=== PATIENT | male | born 1945 | race Caucasian/White ===

== ENCOUNTER 2017-03-21 23:39 | Observation (INO) | payer MEDICARE ==
[~2017-03-21] VITALS: Ht 172.7 cm; Wt 89.2 kg
--- NOTE | 2017-03-21 22:38 | NUR ---
RECEIVED REPORT FROM RADHA RICK FROM [facility] ED IN [place].
[~2017-03-21 23:39] MED LIST: ACYCLOVIR400 MG PO; AVODART0.5 MG PO; DYMISTA1 SPR; FLOMAX0.4 M1 PO; LEVOTHYROXIN100 MC1 PO; LORTAB 5/3255 MG PO; MELOXICAM15 MG PO; OMEPRAZOLE20 MG PO; PERCOCET 10/31 COMBO PO; POM PO; POM SC; PYRIDIUM200 MG PO; SIMVASTATIN40 MG PO; TAMSULOSIN0.4 MG PO
[2017-03-21 23:40] VITALS: BP 144/91
--- NOTE | 2017-03-22 | NUR ---
RECEIVED PATIENT TO THE FLOOR IN STABLE CONDITON VIA STRETCHER ACCOMPANIED BY [facility] TRANSPORTER. PATIENT WEIGHED AND SETTLED TO BED. PT ALERT AND ORIENTED. DENIES ANY PAIN OR DISCOMFORT AT THIS TIME. ORIENT PATIENT TO ROOM CALL SYSTEM. BED IN LOW POSITIOM AND CALL LIGHT INN REACH.
[2017-03-22 03:32] VITALS: BP 119/79
--- NOTE | 2017-03-22 04:00 | NUR ---
NO APPARENT ACUTE CHANGES NOTED IN PT'S CONDITION.
[2017-03-22 05:40] LABS: HEMATOCRIT 41.4 % (39.0-50.0); IMMATURE GRANULOCYTES 0.4 % (0.0-1.0); MEAN CORPUSCULAR HGB 30.8 pG CALC (26.0-32.0); MEAN CORPUSCULAR HGB CONC 33.8 g/L CALC (32.0-36.0); NEUT# 3.41 thou/uL (1.82-7.42); RED BLOOD COUNT 4.55 mill/uL (4.70-6.10)
[2017-03-22 05:58] LABS: ALBUMIN 4.1 g/dL (3.2-5.0); ALKALINE PHOSPHATASE 70 u/l (38-126); ANION GAP 14 (6-22 (CALC)); BILIRUBIN, TOTAL 0.5 mg/dL (0.0-1.4); BUN 16 mg/dL (8-23); BUN/CREATININE RATIO 18 (12-20 (CALC)); CALCIUM 9.2 mg/dL (8.4-10.2); CARBON DIOXIDE 25 mmol/l (22-30); CHLORIDE 108 mmol/l (95-108); CREATININE 0.9 mg/dL (0.7-1.3); GFR > 60 ML/MIN (>=60 (CALC)); GFR FOR AFR.AMER. > 60 ML/MIN (>=60 (CALC)); GLUCOSE 106 mg/dL (82-115); POTASSIUM 4.3 mmol/l (3.5-5.1); SGOT/AST 23 u/l (19-48); SGPT/ALT 32 u/l (11-66); SODIUM 143 mmol/l (137-146); TOTAL PROTEIN 6.6 g/dL (6.3-8.2)
--- NOTE | 2017-03-22 07:00 | NUR ---
SHIFT CHANFE REPORT FROM DOMENICA, PT AWAKE ALERT AND ORIENTED, DENIES PAIN/DISCOMFORT OF ANY SORT, TELE MONITOR IN PLACE. PT C/O OF PERFUME ODOR ON ME MAKING HIM SICK. I WORE NO PERFUME BUT APOLOGISED TO CROW AND ASKED ANOTHER RN TO CONTINUE CARE.
--- NOTE | 2017-03-22 07:00 | NUR ---
SHIFT CHANGE REPORT FROM DOMENICA, PT AWAKE ALERT AND ORIENTED, DENIES CP AT THIS TIME. DOMENICA REPORTED HAD ELEVATED TROP THIS AM, HE INFORMED MD WHO ADVISED HIM MEDICATION EMS ADMINISTERED ENROUTE TO THIS [facility] ([facility]) MA RESULT IN ELEVATED TROP AND NO FURTHER ORDERS/INTERVENTIONS AT THIS TIME. TELE MONITOR IN PLACE, CALL THAKUR IN REACH.
--- NOTE | 2017-03-22 08:45 | NUR ---
DR. HERNANDEZ IN TO SEE PT; PLAN OF CARE DISCUSSED
[2017-03-22 09:16] LABS: CHOLESTEROL HDL RATIO 4.8 (<4.4 (CALC))
[2017-03-22 09:18] VITALS: BP 116/76
--- NOTE | 2017-03-22 09:27 | NUR ---
VS OBTAINED; PT A/O X3; DENIES PAIN OR DISCOMFORT; ENCOURAGE USE OF CALL LIGHT IF ANY ASSISTANCE IS NEEDED; CALL THAKUR WITHIN REACH; WILL CONTINUE TO MONITOR.
[2017-03-22 09:56] LABS: TSH, 3RD GENERATION 0.36 uIU/mL (0.47 - 4.68)
[2017-03-22] MEDS ORDERED: PROTONIX20 M1 PO (10:30)
[2017-03-22] MEDS ORDERED: RANITIDINE150 M1 PO (10:31)
[2017-03-22] MEDS ORDERED: TIZANIDINE2 MG PO (10:32)
[2017-03-22] MEDS ORDERED: TRAMADOL HCL50 MG PO (10:33)
[2017-03-22] MEDS ORDERED: VIAGRA100 MG PO (10:34)
[2017-03-22] MEDS ORDERED: ADVIL200 MG PO (10:38)
[2017-03-22] MEDS ORDERED: ZOCOR20 M1 PO (10:40)
[2017-03-22] MEDS ORDERED: ZOVIRAX200 MG PO (10:41)
[2017-03-22 11:10] VITALS: BP 113/70
--- NOTE | 2017-03-22 12:11 | NUR ---
PT VISITING WITH SPOUSE; DENIES PAIN OR DISCOMFORT; CALL THAKUR WITHIN REACH; WILL CONTINUE TO MONITOR.
--- NOTE | 2017-03-22 15:44 | NUR ---
PT AMBULATORY IN THE ROOM; DENIES PAIN OR DISCOMFORT; TELE SB 58; CALL THAKUR WITHIN REACH; WILL CONTINUE TO MONITOR.
[2017-03-22 16:05] VITALS: BP 124/80
[2017-03-22] MEDS ORDERED: SIMVASTATIN40 MG PO (17:43)
[2017-03-22] MEDS ORDERED: ACYCLOVIR400 MG PO (17:43)
[2017-03-22] MEDS ORDERED: OMEPRAZOLE20 MG PO (17:43)
--- NOTE | 2017-03-22 17:53 | NUR ---
DR. HERNANDEZ IN TO SEE PT; PLAN OF CARE DISCUSSED
--- NOTE | 2017-03-22 18:06 | NUR ---
Discharge instructions given. Patient verbalizes understanding of same. Discharged in stable condition via Ambulatory to Home with spouse. All belongings sent with pt.
== END 2017-03-22 18:04 | disposition home or self-care (01) ==
LOC: MS2 23:39
PROVIDERS: ADMIT Internal Medicine Geriatric Medicine; ATTEND Internal Medicine Geriatric Medicine
DX: I47.1 Supraventricular tachycardia (principal); I45.10 Unspecified right bundle-branch block; K27.9 Peptic ulcer, site unspecified, unspecified as acute or chronic, without hemorrhage or perforation; I25.10 Atherosclerotic heart disease of native coronary artery without angina pectoris; I10 Essential (primary) hypertension; K21.9 Gastro-esophageal reflux disease without esophagitis; N40.0 Benign prostatic hyperplasia without lower urinary tract symptoms

== ENCOUNTER 2019-03-26 08:47 | Emergency (ER) | payer OTHER, MEDICARE ==
[~2019-03-26] VITALS: Ht 172.7 cm; Wt 88.0 kg
[~2019-03-26 08:47] MED LIST changes: +ADVIL200 MG PO; +PROTONIX20 M1 PO; +RANITIDINE150 M1 PO; +TIZANIDINE2 MG PO; +TRAMADOL HCL50 MG PO; +VIAGRA100 MG PO; +ZOCOR20 M1 PO; +ZOVIRAX200 MG PO
[2019-03-26 09:28] LABS: GFR > 60 ML/MIN (>=60 (CALC)); GFR FOR AFR.AMER. > 60 ML/MIN (>=60 (CALC))
[2019-03-26 09:41] LABS: ALBUMIN 4.4 g/dL (3.2-5.0); ALKALINE PHOSPHATASE 90 u/l (38-126); ANION GAP 15 (6-22 (CALC)); BILIRUBIN, TOTAL 0.5 mg/dL (0.0-1.4); BUN 15 mg/dL (8-23); BUN/CREATININE RATIO 18 (12-20 (CALC)); CARBON DIOXIDE 25 mmol/l (22-30); CHLORIDE 104 mmol/l (95-108); CREATININE 0.8 mg/dL (0.7-1.3); GFR > 60 ML/MIN (>=60 (CALC)); GFR FOR AFR.AMER. > 60 ML/MIN (>=60 (CALC)); POTASSIUM 4.4 mmol/l (3.5-5.1); SGOT/AST 25 u/l (19-48); SODIUM 139 mmol/l (137-146); TOTAL PROTEIN 7.4 g/dL (6.3-8.2)
[2019-03-26 09:47] LABS: INTERNATIONAL NORMALIZED RATIO 0.9 RATIO (0.7-1.3); PROTHROMBIN TIME 9.4 SECONDS (9.0-12.5)
[2019-03-26 10:05] LABS: HEMOGLOBIN 14.3 g/dl (14.0-18.0); IMMATURE GRANULOCYTES 0.3 % (0.0-5.0); MEAN CELL VOLUME 90.5 fL CALC (80.0-100.0); MEAN CORPUSCULAR HGB 30.1 pG CALC (26.0-32.0); MEAN CORPUSCULAR HGB CONC 33.3 g/L CALC (32.0-36.0); NEUT# 4.27 thou/uL (1.82-7.42); RED BLOOD COUNT 4.75 mill/uL (4.70-6.10); RED CELL DISTRI WIDTH 13.2 % (11.5-15.5)
[2019-03-26] MEDS ORDERED: MECLIZINE25 MG PO (10:09)
[2019-03-26 10:49] VITALS: BP 139/88
== END 2019-03-26 10:47 | disposition home or self-care (01) | DRG 149 ==
LOC: ED 08:47
PROVIDERS: Family Medicine
DX: H81.10 Benign paroxysmal vertigo, unspecified ear (principal)
CPT/HCPCS: Q9967

== ENCOUNTER 2022-05-03 11:50 | Emergency (ER) | payer OTHER, MEDICARE ==
[~2022-05-03] VITALS: Ht 172.7 cm; Wt 91.0 kg
[2022-05-03] VITALS (15 sets, daily range): BP systolic 134–160; BP diastolic 82–94
[~2022-05-03 11:50] MED LIST changes: +MECLIZINE25 MG PO
[2022-05-03 13:48] LABS: URINE BILIRUBIN - DIPSTICK NEGATIVE (NEGATIVE); URINE BLOOD DIPSTICK NEGATIVE (NEGATIVE); URINE COLOR YELLOW; URINE GLUCOSE - DIPSTICK NEGATIVE (NEGATIVE); URINE KETONE 15 mg/dL (NEGATIVE); URINE LEUK ESTERASE NEGATIVE (NEGATIVE); URINE PH 6.5 (4.5-8.0); URINE PROTEIN - DIPSTICK NEGATIVE (NEG-TRACE); URINE UROBILINOGEN - DIPSTICK 0.2 E.U./dL (0.2)
[2022-05-03 13:49] LABS: URINE NITRITE - DIPSTICK NEGATIVE (Negative)
[2022-05-03 13:50] LABS: BASO% 0.3 % (0-3); EOS% 1.2 % (0-8); HEMATOCRIT 39.8 % (39.0-50.0); HEMOGLOBIN 13.8 g/dl (14.0-18.0); IMMATURE GRANULOCYTES 0.2 % (0.0-5.0); LYMPH% 7.9 % (15-41); MEAN CORPUSCULAR HGB 31.2 pG CALC (26.0-32.0); MEAN CORPUSCULAR HGB CONC 34.7 g/dL CAL (32.0-36.0); MONO% 9.3 % (2-13); NEUT# 5.35 thou/uL (1.82-7.42); NEUT% 81.1 % (42-76); RED BLOOD COUNT 4.42 mill/uL (4.70-6.10)
[2022-05-03 14:03] LABS: ALBUMIN 4.5 g/dL (3.2-5.0); ALKALINE PHOSPHATASE 70 u/l (38-126); ANION GAP 13 (6-22 (CALC)); CARBON DIOXIDE 27 mmol/l (22-30); CHLORIDE 103 mmol/l (95-108); LIPASE 73 u/l (23-300); POTASSIUM 3.8 mmol/l (3.5-5.1); SGOT/AST 32 u/l (19-48); SODIUM 140 mmol/l (137-146); TOTAL PROTEIN 7.2 g/dL (6.3-8.2)
[2022-05-03 14:05] LABS: BILIRUBIN, TOTAL 0.8 mg/dL (0.0-1.4)
[2022-05-03 14:13] LABS: BUN 15 mg/dL (8-23); BUN/CREATININE RATIO 17 (12-20 (CALC)); CREATININE 0.9 mg/dL (0.7-1.3); GFR FOR AFR.AMER. > 60 ML/MIN (>=60 (CALC)); GFR OTHER RACES > 60 ML/MIN (>=60 (CALC))
[2022-05-03] MEDS ORDERED: AZITHROMYC200 MG/5 M PO ×2 (14:38→19:20)
[2022-05-03] MEDS ORDERED: METRONIDAZOLE500 MG PO (16:23)
[2022-05-03] MEDS ORDERED: OMNI-PAC300 MG PO (16:23)
[2022-05-03] MEDS ORDERED: ZOFRAN4 MG/TAB PO (16:23)
[2022-05-03] MEDS ORDERED: DICYCLOMINE HCL20 MG PO (16:23)
== END 2022-05-03 17:33 | disposition home or self-care (01) | DRG 392 ==
LOC: ED 11:50
PROVIDERS: Internal Medicine
DX: K57.32 Diverticulitis of large intestine without perforation or abscess without bleeding (principal)
CPT/HCPCS: Q9967

== ENCOUNTER 2023-05-02 15:40 | Emergency (ER) | payer MEDICARE ==
[~2023-05-02] VITALS: Ht 172.7 cm; Wt 90.7 kg
[2023-05-02] VITALS (17 sets, daily range): BP systolic 131–167; BP diastolic 76–141
[~2023-05-02 15:40] MED LIST changes: +AZITHROMYC200 MG/5 M PO; +CRESTOR40 MG PO; +DICYCLOMINE HCL20 MG PO; +METRONIDAZOLE500 MG PO; +OMNI-PAC300 MG PO; +PROSCAR5 MG PO; +TADALAFIL; +ZOFRAN4 MG/TAB PO
[2023-05-02 16:36] LABS: BASO% 0.3 % (0-3); EOS% 1.2 % (0-8); HEMOGLOBIN 15.4 g/dl (14.0-18.0); IMMATURE GRANULOCYTES 0.2 % (0.0-5.0); LYMPH% 12.9 % (15-41); MEAN CELL VOLUME 90.9 fL CALC (80.0-100.0); MEAN CORPUSCULAR HGB 29.9 pG CALC (26.0-32.0); MEAN CORPUSCULAR HGB CONC 32.9 g/dL CAL (32.0-36.0); MONO% 6.4 % (2-13); NEUT# 7.12 thou/uL (1.82-7.42); RED BLOOD COUNT 5.15 mill/uL (4.70-6.10); RED CELL DISTRI WIDTH 12.7 % (11.5-15.5)
[2023-05-02 16:37] LABS: HEMATOCRIT 46.8 % (39.0-50.0)
[2023-05-02 17:05] LABS: ALBUMIN 4.7 g/dL (3.2-5.0); ALKALINE PHOSPHATASE 79 u/l (38-126); ANION GAP 16 (6-22 (CALC)); BILIRUBIN, TOTAL 0.6 mg/dL (0.2-1.3); BUN 19 mg/dL (8-23); BUN/CREATININE RATIO 19 (12-20 (CALC)); CARBON DIOXIDE 26 mmol/l (22-30); CHLORIDE 101 mmol/l (95-108); GFR FOR AFR.AMER. > 60 ML/MIN (>=60 (CALC)); GFR OTHER RACES > 60 ML/MIN (>=60 (CALC)); LIPASE 83 u/l (23-300); SGOT/AST 34 u/l (19-48); SODIUM 139 mmol/l (137-146); TOTAL PROTEIN 7.5 g/dL (6.3-8.2)
[2023-05-02 17:47] LABS: URINE BILIRUBIN - DIPSTICK Negative (NEGATIVE); URINE BLOOD DIPSTICK Negative (NEGATIVE); URINE GLUCOSE - DIPSTICK Negative (NEGATIVE); URINE KETONE Negative (NEGATIVE); URINE LEUK ESTERASE Negative (NEGATIVE); URINE NITRITE - DIPSTICK Negative (Negative); URINE PH 5.5 (4.5-8.0); URINE PROTEIN - DIPSTICK 30 mg/dL (NEG-TRACE); URINE SPECIFIC GRAVITY >=1.030; URINE UROBILINOGEN - DIPSTICK 0.2 E.U./dL (0.2)
[2023-05-02 17:49] LABS: URINE COLOR Yellow
[2023-05-02 17:50] LABS: URINE RBC 0-2 RBC/hpf (0-5); URINE WBC 0-2 WBC/hpf (0-5)
[2023-05-02] MEDS ORDERED: SYNTHROID150 MCG PO (19:53)
[2023-05-02] MEDS ORDERED: CIALIS20 MG PO (19:55)
[2023-05-02] MEDS ORDERED: DUTASTERIDE0.5 MG PO (19:56)
== END 2023-05-02 21:30 ==
LOC: ED 15:40
PROVIDERS: Nurse Practitioner
DX: K56.609 Unspecified intestinal obstruction, unspecified as to partial versus complete obstruction (principal); K31.1 Adult hypertrophic pyloric stenosis
CPT/HCPCS: Q9967